=== PATIENT | female | born 1970 | race Caucasian/White ===

== ENCOUNTER 2018-03-23 10:43 | Day surgery (SDC) | payer OTHER ==
[2018-03-23 11:22] LABS: HEMATOCRIT 31.9 % (36.0-47.0); MEAN CORPUSCULAR HGB CONC 31.3 g/dl (32.0-36.5); MEAN CORPUSCULAR VOLUME 86.2 fl (80.0-96.0); PLATELET COUNT, AUTOMATED 345 10^3/uL (150-450); RED CELL DISTRIBUTION WIDTH 15.1 % (11.5-14.5); WHITE BLOOD COUNT 5.8 10^3/uL (4.0-10.0)
[2018-03-23] MEDS: LR 1,000 ML IV (11:24)
[2018-03-23 11:39] LABS: CONTROL LINE HCG INT CTR LINE PRESENT; HCG, SERUM QUALITATIVE NEGATIVE (NEGATIVE)
[2018-03-23] MEDS ORDERED: PROPOFOL 200 MG/20 ML VIAL As Ordered (12:26)
[2018-03-23] MEDS ORDERED: dexameTHASONE 4 MG/ML 1ML VIAL (J1100) As Ordered (12:26)
[2018-03-23] MEDS ORDERED: LIDOCAINE 2% INJ 100 MG/5 ML SDV (FOR ANES.) As Ordered (12:26)
[2018-03-23] MEDS ORDERED: ONDANSETRON 4MG/2ML VIAL (J2405) As Ordered (12:26)
[2018-03-23] MEDS ORDERED: MIDAZOLAM INJ 2 MG/2 ML VIAL (J2250) As Ordered (12:26)
[2018-03-23] MEDS ORDERED: KETOROLAC 60 MG/2 ML VIAL (J1885) As Ordered (12:26)
[2018-03-23] MEDS ORDERED: fentaNYL 100 MCG/2 ML INJECTION (J3010) As Ordered (12:27)
[2018-03-23] MEDS ORDERED: ePHEDrine SULFATE 25 MG/5 ML(5MG/ML) SYRINGE As Ordered (14:02)
[2018-03-23] MEDS ORDERED: ONDANSETRON 4MG/2ML VIAL (J2405) IV (15:00)
[2018-03-23] MEDS ORDERED: PERCOCET 5MG/325MG TAB PO (15:00)
[2018-03-23] MEDS ORDERED: LR 1,000 ML IV (15:00)
[2018-03-23] MEDS ORDERED: fentaNYL 100 MCG/2 ML INJECTION (J3010) IV (15:00)
[2018-03-29 10:55] LABS: HPV LOW VOL RFLX Negative (Negative)
== END 2018-03-23 16:55 | disposition home or self-care (01) ==
LOC: M SDC 10:43
DX: N92.6 Irregular menstruation, unspecified (principal); N84.0 Polyp of corpus uteri; E03.9 Hypothyroidism, unspecified; Z79.899 Other long term (current) drug therapy
CPT/HCPCS: 58558